=== PATIENT | female | born 1990 | race African-American/Black ===

== ENCOUNTER 2017-12-07 18:27 | Emergency (ER) | payer MEDICAID ==
[~2017-12-07] VITALS: Ht 160 cm; Wt 53.1 kg
[2017-12-07 19:08] LABS: BASOPHILS % (AUTO) 0.5 % (0.0-2.0); EOSINOPHILS # (AUTO) 0.1 K/uL (0.0-0.7); EOSINOPHILS % (AUTO) 1.9 % (0.0-7.0); HEMATOCRIT 40.8 % (31.2-41.9); HEMOGLOBIN 13.8 g/dL (10.9-14.3); LYMPHOCYTES # (AUTO) 2.1 K/uL (20.0-40.0); LYMPHOCYTES % (AUTO) 42.3 % (20.5-51.5); MEAN CORPUSCULAR HEMOGLOBIN 32.7 uug (24.7-32.8); MEAN CORPUSCULAR HGB CONC 34 g/dL (32.3-35.6); MEAN CORPUSCULAR VOLUME 96.5 fL (75.5-95.3); MONOCYTES # (AUTO) 0.3 K/uL (2.0-10.0); MONOCYTES % (AUTO) 5.8 % (0.0-11.0); NEUTROPHILS # (AUTO) 2.5 K/uL (1.8-8.9); NEUTROPHILS % (AUTO) 49.5 % (38.5-71.5); PLATELET COUNT (AUTO) 225 K/uL (179-408); RED BLOOD CELL COUNT(AUTO) 4.23 MIL/uL (3.63-4.92); WHITE BLOOD COUNT (AUTO) 5.1 K/uL (3.8-11.8)
--- NOTE | 2017-12-07 19:15 | NUR ---
ASSUMED CARE OF PATIENT. NO ACUTE DISTRESS NOTED. WILL CONTINUE TO MONITOR PATIENT.
[2017-12-07 19:16] LABS: CREATININE 0.7 mg/dL (0.6-1.3); POTASSIUM 3.7 mmol/L (3.5-5.1)
[2017-12-07 19:22] LABS: BILIRUBIN,DIRECT 0.1 mg/dL (0.0-0.2); BILIRUBIN,TOTAL 0.4 mg/dL (0.2-1.0); TOTAL PROTEIN, SERUM 7.3 g/dL (6.4-8.2)
--- NOTE | 2017-12-07 19:40 | NUR ---
Robyn arriaga in [facility] - 12/07/17 at 1949 by KARY Report given to Ino HENDERSON
--- NOTE | 2017-12-07 20:07 | NUR ---
Patient discharged to home in stable conditon. Written and verbal after care instructions given. Patient verbalizes understanding of instructions. Patient ambulated from ER with steady gait. all belongings with patient. No peripheral access placed during ER stay. VSS.
[2017-12-07 20:10] VITALS: BP 104/78
== END 2017-12-07 20:13 | disposition home or self-care (01) ==
LOC: ER 18:32
DX: R07.89 Other chest pain (principal); Z88.5 Allergy status to narcotic agent
CPT/HCPCS: 36415; 70030-TC; 71045; 84703; 85025; 85730; 93005; A4663

== ENCOUNTER 2018-01-18 17:14 | Emergency (ER) | payer MEDICAID ==
[~2018-01-18] VITALS: Ht 160 cm; Wt 54.4 kg
[2018-01-18 18:28] VITALS: BP 131/76
--- NOTE | 2018-01-18 18:28 | NUR ---
Patient discharged to home in stable conditon. Written and verbal after care instructions given. Patient verbalizes understanding of instructions.
== END 2018-01-18 18:29 | disposition home or self-care (01) ==
LOC: ER 17:16
DX: K08.89 Other specified disorders of teeth and supporting structures (principal); Z88.5 Allergy status to narcotic agent
CPT/HCPCS: A4663

== ENCOUNTER 2018-07-28 15:38 | Emergency (ER) | payer SELFPAY ==
[~2018-07-28] VITALS: Ht 160 cm; Wt 53.5 kg
[2018-07-28 16:11] LABS: *URINE HCG, QUAL NEGATIVE (NEGATIVE)
[2018-07-28] MEDS ORDERED: SUMATRIPTAN SUCCINATE 6 MG/0.5 ML VIAL SQ ONE ×2 (16:27→16:30)
[2018-07-28 16:36] VITALS: BP 109/110
== END 2018-07-28 16:45 | disposition home or self-care (01) ==
LOC: ER 15:40
DX: R51 Headache (principal); Z88.5 Allergy status to narcotic agent
CPT/HCPCS: 84703; A4663; J3030